=== PATIENT | female | born 1935 | race Caucasian/White ===

== ENCOUNTER 2021-11-02 23:17 | Inpatient (IN) | payer OTHER ==
[~2021-11-02] VITALS: Ht 160 cm; Wt 89.7 kg
[2021-11-03 01:26] LABS: White Blood Cell 5.8 10^3/uL (4.4-10.8)
[2021-11-03 01:29] LABS: Urine Bacteria FEW /hpf (None Seen); Urine Blood 1+ /uL (Negative); Urine Budding Yeast OCCASIONAL /hpf (None Seen); Urine Hyaline Cast FEW /lpf (0 - 2); Urine Mucus FEW (None Seen); Urine Specific Gravity 1.016 (1.001-1.035); Urine WBC 331 /hpf (0 - 5); Urine WBC Clumps PRESENT /hpf (None Seen)
[2021-11-03 01:30] LABS: Basophils # (auto) 0 10 ^3/uL (0-0.2); Basophils % (auto) 0.6 % (0.0-2.0); Eosinophils # (auto) 0.1 10 ^3/uL (0-0.8); Eosinophils % (auto) 1.8 % (0.0-7.0); Hematocrit 25.4 % (36.0-46.0); Hemoglobin 8.6 g/dL (12.2-16.2); Lymphocytes # (auto) 0.8 10 ^3/uL (0.4-5.4); Lymphocytes % (auto) 13.2 % (10.0-50.0); Mean Corpuscular Hemoglobin 27.3 pg (28.0-32.0); Mean Corpuscular Hgb Conc. 33.8 g/dL (32.0-36.0); Mean Corpuscular Volume 80.6 fL (80.0-100.0); Monocytes # (auto) 0.5 10 ^3/uL (0-1.3); Monocytes % (auto) 8.1 % (0.0-12.0); Neutrophils # (auto) 4.5 10 ^3/uL (1.6-8.6); Neutrophils % (auto) 76.3 % (37.0-80.0); Red Blood Cells 3.15 10^6/uL (4.0-5.20); Red Cell Distribution Width 17.8 % (11.8-14.3)
[2021-11-03 01:40] LABS: Albumin 2.8 g/dL (3.4-5.0); Calcium 8.4 mg/dL (8.5-10.1); Potassium 5.1 mmol/L (3.5-5.1)
[2021-11-03 01:42] LABS: Alcohol, Urine < 3.0 mg/dL (0-10); Amphetamine Screen, Urine NEGATIVE (NEGATIVE); Barbiturate Scree,Urine NEGATIVE (NEGATIVE); Cannabinoid Screen, Urine NEGATIVE (NEGATIVE); Cocaine Screen, Urine NEGATIVE (NEGATIVE); Opiate Scree,Urine NEGATIVE (NEGATIVE); Phencyclidine Screen, Urine NEGATIVE (NEGATIVE)
[2021-11-03 01:43] LABS: BUN/Creatinine Ratio 33.3; Bilirubin, Total 0.4 mg/dL (0.2-1.0); Total Protein 6.6 g/dL (6.4-8.2)
[2021-11-03 01:44] LABS: Benzodiazephine Screen, Urine POSITIVE (NEGATIVE)
[2021-11-03] MEDS ORDERED: ENOXAPARIN SOD 100 MG/1 ML SYRINGE SC ONE (02:15)
[2021-11-03] MEDS ORDERED: ASPirin-EC 325mg tab PO ONE (02:15)
[2021-11-03] MEDS ORDERED: VANCOMYCIN 1GM/250ML 250 ML IV ONE (02:30)
[2021-11-03] MEDS ORDERED: PIPERACILLIN-TAZOB 3.375GM 100 ML IV ONE (05:30)
[2021-11-03] MEDS ORDERED: DOCUSATE SOD 100 MG CAP PO PRN (06:45)
[2021-11-03] MEDS ORDERED: MORPHINE SULFATE INJECTION 2 MG/ML SYRG IV PRN (06:45)
[2021-11-03] MEDS ORDERED: HYDROcodone-ACET 5/325MG TAB PO PRN (06:45)
[2021-11-03] MEDS ORDERED: NITROGLYCERIN 0.4 MG SL TAB SL PRN (06:45)
[2021-11-03] MEDS ORDERED: ACETAMINOPHEN 325 MG TAB PO PRN (06:45)
[2021-11-03] MEDS ORDERED: ONDANSETRON HCL 4 MG/2 ML VIAL IV PRN (06:45)
[2021-11-03] MEDS ORDERED: VANCOMYCIN PER PHARMACY 0 MG IV SCH (07:00)
[2021-11-03 08:52] LABS: Albumin 2.7 g/dL (3.4-5.0); Calcium 8.2 mg/dL (8.5-10.1); Potassium 4.7 mmol/L (3.5-5.1)
[2021-11-03 08:56] LABS: BUN/Creatinine Ratio 33.6; Bilirubin, Total 0.4 mg/dL (0.2-1.0); Total Protein 6.3 g/dL (6.4-8.2)
[2021-11-03 09:09] LABS: Basophils # (auto) 0 10 ^3/uL (0-0.2); Eosinophils # (auto) 0.1 10 ^3/uL (0-0.8); Hemoglobin 8.4 g/dL (12.2-16.2); Mean Corpuscular Volume 80.8 fL (80.0-100.0); Monocytes # (auto) 0.3 10 ^3/uL (0-1.3); Red Cell Distribution Width 17.9 % (11.8-14.3); White Blood Cell 4.1 10^3/uL (4.4-10.8)
[2021-11-03 09:11] LABS: Basophils % (auto) 1.1 % (0.0-2.0); Eosinophils % (auto) 2.6 % (0.0-7.0); Hematocrit 24.2 % (36.0-46.0); Lymphocytes # (auto) 0.7 10 ^3/uL (0.4-5.4); Lymphocytes % (auto) 16.6 % (10.0-50.0); Mean Corpuscular Hgb Conc. 34.6 g/dL (32.0-36.0); Monocytes % (auto) 8.2 % (0.0-12.0); Neutrophils % (auto) 71.5 % (37.0-80.0); Nucleated Red Blood Cells % 0.4 %; Red Blood Cells 2.99 10^6/uL (4.0-5.20)
[2021-11-03] MEDS: cefTRIAXone 1GM/50ML D5W 50 ML IV SCH (09:13)
[2021-11-03 10:00] VITALS: BP 108/40
[2021-11-03] MEDS ORDERED: FUROSEMIDE 20 MG/2 ML VIAL IV SCH (10:00)
[2021-11-03] MEDS ORDERED: FAMOTIDINE (10MG/ML) 2ML VL IV SCH (10:00)
[2021-11-03] MEDS: HEPARIN SODIUM (PORCINE) 5000 UNITS/ML 1ML VIAL SC SCH ×2 (11:15→21:36)
[2021-11-03] MEDS: ASPirin 81 mg TAB PO SCH (11:35)
[2021-11-03 12:30] VITALS: BP 116/49
[2021-11-03] MEDS: SODIUM CHLOR 0.9% PF (SALINE LOCK) 10ML VIAL/SYR IV SCH ×2 (13:46→22:00)
[2021-11-03] MEDS: AZITHROMYCIN 500MG/ 250ML 250 ML IV SCH (13:46)
[2021-11-03] MEDS: SODIUM CHLORIDE 0.9% 1,000 ML IV SCH (16:06)
[2021-11-03] MEDS ORDERED: LORazepam 0.5 MG TAB PO PRN (16:15)
[2021-11-03 17:00] VITALS: BP 88/49
[2021-11-03 17:28] VITALS: BP 94/46
[2021-11-03 22:00] VITALS: BP 100/50
[2021-11-04] MEDS: SODIUM CHLORIDE 0.9% 1,000 ML IV SCH (04:38)
[2021-11-04 04:48] VITALS: BP 94/43
[2021-11-04 06:01] LABS: Albumin 2.5 g/dL (3.4-5.0); Calcium 7.5 mg/dL (8.5-10.1)
[2021-11-04 06:05] LABS: BUN/Creatinine Ratio 31.1; Bilirubin, Total 0.3 mg/dL (0.2-1.0); Total Protein 5.5 g/dL (6.4-8.2)
[2021-11-04] MEDS: SODIUM CHLOR 0.9% PF (SALINE LOCK) 10ML VIAL/SYR IV SCH ×3 (06:06→22:00)
[2021-11-04 06:31] LABS: Basophils # (auto) 0.1 10 ^3/uL (0-0.2); Eosinophils # (auto) 0.1 10 ^3/uL (0-0.8); Hemoglobin 8.1 g/dL (12.2-16.2); Lymphocytes # (auto) 1.1 10 ^3/uL (0.4-5.4); Neutrophils # (auto) 3.9 10 ^3/uL (1.6-8.6)
[2021-11-04 06:33] LABS: Basophils % (auto) 0.9 % (0.0-2.0); Eosinophils % (auto) 1.7 % (0.0-7.0); Hematocrit 23.5 % (36.0-46.0); Lymphocytes % (auto) 19.7 % (10.0-50.0); Mean Corpuscular Hemoglobin 27.9 pg (28.0-32.0); Mean Corpuscular Hgb Conc. 34.5 g/dL (32.0-36.0); Monocytes # (auto) 0.4 10 ^3/uL (0-1.3); Monocytes % (auto) 7.8 % (0.0-12.0); Neutrophils % (auto) 69.9 % (37.0-80.0); Red Blood Cells 2.91 10^6/uL (4.0-5.20); Red Cell Distribution Width 17.8 % (11.8-14.3); White Blood Cell 5.6 10^3/uL (4.4-10.8)
[2021-11-04 07:43] LABS: Potassium 5.7 mmol/L (3.5-5.1)
[2021-11-04 08:30] VITALS: BP 100/48
[2021-11-04] MEDS: cefTRIAXone 1GM/50ML D5W 50 ML IV SCH (08:42)
[2021-11-04] MEDS ORDERED: HEPARIN SODIUM (PORCINE) 5000 UNITS/ML 1ML VIAL ONE (09:44)
[2021-11-04] MEDS: HEPARIN SODIUM (PORCINE) 5000 UNITS/ML 1ML VIAL SC SCH ×2 (09:55→23:04)
[2021-11-04] MEDS: ASPirin 81 mg TAB PO SCH (09:55)
[2021-11-04] MEDS: AZITHROMYCIN 500MG/ 250ML 250 ML IV SCH (09:55)
[2021-11-04] MEDS ORDERED: DAPAGLIFLOZIN 5 MG TAB PO SCH (10:00)
[2021-11-04] MEDS ORDERED: PANTOPRAZOLE 40 MG TAB PO SCH (10:00)
[2021-11-04] MEDS ORDERED: SODIUM BICARBONATE 8.4% INJ 50ML SYRINGE IV ONE (11:45)
[2021-11-04] MEDS ORDERED: FUROSEMIDE 40 MG/4 ML VIAL IV ONE (11:45)
[2021-11-04] MEDS ORDERED: SODIUM ZIRCONIUM CYCL 10 GM PAK PO ONE (11:45)
[2021-11-04] MEDS ORDERED: ALBUTEROL SULF 2.5 MG/0.5ML(0.5%) NEB SOLN NEB ONE (11:45)
[2021-11-04 12:30] VITALS: BP 82/43
[2021-11-04] MEDS ORDERED: DEXTROSE (50%) 50ML SYRG IV PRN (12:45)
[2021-11-04] MEDS ORDERED: guaiFENesin 200 MG/10 ML UD PO PRN (12:45)
[2021-11-04 14:00] VITALS: BP 98/51
[2021-11-04 16:30] VITALS: BP 98/50
[2021-11-04] MEDS: ACCU-CHEK COMFORT CURVE STRIP VI SCH ×2 (17:36→23:05)
[2021-11-04] MEDS: InsuLIN REG 1unit/0.01ml Soln (100units/ml) SC SCH ×2 (17:37→23:05)
[2021-11-04] MEDS: SODIUM ZIRCONIUM CYCL 10 GM PAK PO SCH (19:45)
[2021-11-04 22:00] VITALS: BP 100/50
[2021-11-05] MEDS: SODIUM ZIRCONIUM CYCL 10 GM PAK PO SCH ×3 (03:45→20:06)
[2021-11-05 04:41] LABS: Basophils # (auto) 0.1 10 ^3/uL (0-0.2); Basophils % (auto) 1.1 % (0.0-2.0); Calcium 7.5 mg/dL (8.5-10.1); Eosinophils # (auto) 0.1 10 ^3/uL (0-0.8); Eosinophils % (auto) 1.3 % (0.0-7.0); Hematocrit 24.4 % (36.0-46.0); Hemoglobin 8.4 g/dL (12.2-16.2); Lymphocytes # (auto) 1.1 10 ^3/uL (0.4-5.4); Lymphocytes % (auto) 18.8 % (10.0-50.0); Mean Corpuscular Hemoglobin 27.9 pg (28.0-32.0); Mean Corpuscular Hgb Conc. 34.2 g/dL (32.0-36.0); Mean Corpuscular Volume 81.6 fL (80.0-100.0); Monocytes # (auto) 0.5 10 ^3/uL (0-1.3); Neutrophils % (auto) 69.8 % (37.0-80.0); Red Blood Cells 2.99 10^6/uL (4.0-5.20); Red Cell Distribution Width 18.2 % (11.8-14.3); White Blood Cell 5.8 10^3/uL (4.4-10.8)
[2021-11-05 04:42] LABS: % Iron Saturation 8.8 % (15-50)
[2021-11-05 04:44] LABS: BUN/Creatinine Ratio 26.4
[2021-11-05 05:00] VITALS: BP 109/55
[2021-11-05 05:21] LABS: Potassium 5.6 mmol/L (3.5-5.1)
[2021-11-05] MEDS: SODIUM CHLOR 0.9% PF (SALINE LOCK) 10ML VIAL/SYR IV SCH ×3 (05:23→22:08)
[2021-11-05] MEDS: InsuLIN REG 1unit/0.01ml Soln (100units/ml) SC SCH (05:23)
[2021-11-05] MEDS: ACCU-CHEK COMFORT CURVE STRIP VI SCH (05:23)
[2021-11-05 08:27] VITALS: BP 107/52
[2021-11-05] MEDS: cefTRIAXone 1GM/50ML D5W 50 ML IV SCH (08:29)
[2021-11-05] MEDS ORDERED: FUROSEMIDE 40 MG/4 ML VIAL IV ONE (08:30)
[2021-11-05] MEDS ORDERED: FUROSEMIDE 40 MG/4 ML VIAL IV SCH (10:00)
[2021-11-05] MEDS: HEPARIN SODIUM (PORCINE) 5000 UNITS/ML 1ML VIAL SC SCH ×2 (10:18→22:09)
[2021-11-05] MEDS: ASPirin 81 mg TAB PO SCH (10:18)
[2021-11-05] MEDS: ALBUMIN 25% 50 ML IV SCH ×3 (10:20→23:56)
[2021-11-05] MEDS ORDERED: FUROSEMIDE 20 MG/2 ML VIAL IV ONE ×2 (11:15→13:00)
[2021-11-05] MEDS: AZITHROMYCIN 500MG/ 250ML 250 ML IV SCH (12:05)
[2021-11-05 12:55] VITALS: BP 141/62
[2021-11-05 17:00] VITALS: BP 102/63
[2021-11-05 22:00] VITALS: BP 132/32
[2021-11-06] MEDS: SODIUM ZIRCONIUM CYCL 10 GM PAK PO SCH ×2 (04:52→14:20)
[2021-11-06 05:00] VITALS: BP 123/35
[2021-11-06] MEDS: SODIUM CHLOR 0.9% PF (SALINE LOCK) 10ML VIAL/SYR IV SCH ×3 (06:00→21:59)
[2021-11-06 06:31] LABS: Anion Gap 12 (5-15); BUN/Creatinine Ratio 23.3; Calcium 7.2 mg/dL (8.5-10.1); Carbon Dioxide 21 mmol/L (21-32); Chloride 101 mmol/L (98-107); GFR African American 15 mL/min; GFR Non-African American 13 mL/min; Glucose 73 mg/dL (74-106); Potassium 5.3 mmol/L (3.5-5.1); Sodium 134 mmol/L (136-145)
[2021-11-06 06:58] LABS: Blood Urea Nitrogen 84 mg/dL (7-18)
[2021-11-06 09:00] VITALS: BP 128/45
[2021-11-06] MEDS: cefTRIAXone 1GM/50ML D5W 50 ML IV SCH (09:52)
[2021-11-06] MEDS: ASPirin 81 mg TAB PO SCH (09:53)
[2021-11-06] MEDS: HEPARIN SODIUM (PORCINE) 5000 UNITS/ML 1ML VIAL SC SCH ×2 (09:58→21:59)
[2021-11-06 11:14] LABS: Protein, Urine 137.1 mg/dL (0.0-11.9)
[2021-11-06] MEDS ORDERED: FLUCONAZOLE 200MG/100ML 100 ML IV ONE (11:45)
[2021-11-06] MEDS: AZITHROMYCIN 500MG/ 250ML 250 ML IV SCH (12:52)
[2021-11-06 13:00] VITALS: BP 125/57
[2021-11-06] MEDS ORDERED: SODIUM ZIRCONIUM CYCL 10 GM PAK PO ONE (14:15)
[2021-11-06 16:57] VITALS: BP 114/82
[2021-11-06 22:00] VITALS: BP 135/58
[2021-11-07 05:00] VITALS: BP 117/49
[2021-11-07 05:14] LABS: Eosinophils # (auto) 0.2 10 ^3/uL (0-0.8); Lymphocytes # (auto) 0.9 10 ^3/uL (0.4-5.4); Monocytes # (auto) 0.5 10 ^3/uL (0-1.3); Nucleated Red Blood Cells % 0.1 %
[2021-11-07 05:17] LABS: Basophils # (auto) 0.1 10 ^3/uL (0-0.2); Basophils % (auto) 1.1 % (0.0-2.0); Eosinophils % (auto) 3.8 % (0.0-7.0); Hematocrit 22.3 % (36.0-46.0); Hemoglobin 7.8 g/dL (12.2-16.2); Mean Corpuscular Hemoglobin 28.5 pg (28.0-32.0); Mean Corpuscular Volume 81.5 fL (80.0-100.0); Monocytes % (auto) 9.6 % (0.0-12.0); Neutrophils # (auto) 3.4 10 ^3/uL (1.6-8.6); Neutrophils % (auto) 67.5 % (37.0-80.0); Red Blood Cells 2.73 10^6/uL (4.0-5.20); Red Cell Distribution Width 18.6 % (11.8-14.3)
[2021-11-07 05:36] LABS: Potassium 5.2 mmol/L (3.5-5.1)
[2021-11-07 05:37] LABS: BUN/Creatinine Ratio 25.8; Calcium 7.8 mg/dL (8.5-10.1)
[2021-11-07] MEDS: SODIUM CHLOR 0.9% PF (SALINE LOCK) 10ML VIAL/SYR IV SCH ×2 (05:50→13:34)
[2021-11-07 09:00] VITALS: BP 139/53
[2021-11-07] MEDS: ASPirin 81 mg TAB PO SCH (09:08)
[2021-11-07] MEDS: cefTRIAXone 1GM/50ML D5W 50 ML IV SCH (09:08)
[2021-11-07] MEDS: HEPARIN SODIUM (PORCINE) 5000 UNITS/ML 1ML VIAL SC SCH (09:09)
[2021-11-07] MEDS ORDERED: FLUCONAZOLE 200MG/100ML 100 ML IV SCH (10:00)
[2021-11-07] MEDS: AZITHROMYCIN 500MG/ 250ML 250 ML IV SCH (10:18)
[2021-11-07 13:00] VITALS: BP 149/68
[2021-11-07 16:35] VITALS: BP 122/48
== END 2021-11-07 18:00 | disposition short-term general hospital (02) | DRG 871 ==
LOC: ER 23:17 → EDBD 23:17 → TELE 11-03 06:45 → TELE-EAST 11-03 09:55
PROVIDERS: ADMIT Nurse Practitioner Family; ATTEND Internal Medicine
DX: A41.9 Sepsis, unspecified organism (principal); I21.4 Non-ST elevation (NSTEMI) myocardial infarction; J18.9 Pneumonia, unspecified organism; I50.21 Acute systolic (congestive) heart failure; N17.0 Acute kidney failure with tubular necrosis; G92.8 Other toxic encephalopathy; L03.115 Cellulitis of right lower limb; L03.116 Cellulitis of left lower limb; N39.0 Urinary tract infection, site not specified; N18.4 Chronic kidney disease, stage 4 (severe); D63.8 Anemia in other chronic diseases classified elsewhere; E87.5 Hyperkalemia; E88.09 Other disorders of plasma-protein metabolism, not elsewhere classified; R65.20 Severe sepsis without septic shock; I07.1 Rheumatic tricuspid insufficiency; Z20.822 Contact with and (suspected) exposure to COVID-19; R79.89 Other specified abnormal findings of blood chemistry; E11.22 Type 2 diabetes mellitus with diabetic chronic kidney disease
CPT/HCPCS: 36415; 70450; 71045; 80048; 80053; 80307; 81001; 82570; 82962; 83036; 83540; 83550; 83605; 83880; 84156; 84300; 84484; 85025; 87040; 87086; 87088; 93005; 93306; 93970; 94640; 96365; 96366; 96367; 96372; 97163; 99291; G0378; J0696; J1450; J2543; J3490